=== PATIENT | female | born 1960 | race Caucasian/White ===

== ENCOUNTER 2022-04-02 13:26 | Outpatient (CLI) | payer BC, SELFPAY ==
--- NOTE | 2022-04-02 14:00 | CRLHL7_ITS ---
For Patients: As a result of the Century Cures Act, medical imaging exams and procedure reports are released immediately into your electronic medical record. You may view this report before your referring provider. If you have questions, please contact your health care provider. Indication: Low back pain, radiculopathy, left disc herniation Technique: Multiplanar, multisequence, MRI of the lumbar spine, obtained without contrast. Comparison: No relevant comparison studies available at this institution. Findings: S-shaped thoracolumbar spinal curvature. Preserved lordosis. Minimal grade 1 anterolisthesis at L4-5. No acute osseus abnormality. No suspicious bony edema or focal marrow lesion. The conus medullaris terminates at approximately L2. No suspicious findings in the prevertebral and paraspinal soft tissues. Markedly distended urinary bladder with bilateral renal cysts. Included SI joints are unremarkable. T12-L1 L1-2, L2-3: No significant neural foramen or spinal canal stenosis. L3-L4: Disc bulge, facet arthropathy. Suggestion of asymmetric lobulated fullness of the extraforaminal left L3 nerve (series 7 and 8, image 23), measuring up to 1 cm. No significant foraminal or spinal canal stenosis. L4-L5: Minimal anterolisthesis, disc unroofing/bulge, facet arthropathy. No significant foraminal or spinal canal stenosis. L5-S1: Disc bulge, facet arthropathy. Moderate-severe left foraminal stenosis with impingement of the exiting left L5 nerve root. No central spinal canal stenosis. Impression: 1. S-shaped thoracolumbar curvature with minimal degenerative grade 1 anterolisthesis at L4-5. 2. At L3-4, there appears to be fullness of the extraforaminal exiting left L3 nerve measuring up to 1 cm, possibly representing peripheral nerve sheath tumor versus artifact. Consider contrast enhanced MRI lumbar spine for further characterization. 3. At L5-S1, disc bulge and facet arthropathy contribute to moderate-severe left foraminal stenosis with impingement of the exiting left L5 nerve root. Dictated by Maria Isabel Vasquez MD @ 04/03/2022 11:09:22 AM (Electronically Signed)
== END 2022-04-02 13:27 | disposition home or self-care (01) ==
LOC: MRI 13:27
PROVIDERS: PCP Family Medicine; Visit Provider Family Medicine
DX: M54.50 Low back pain, unspecified (principal); M51.27 Other intervertebral disc displacement, lumbosacral region; M54.16 Radiculopathy, lumbar region
CPT/HCPCS: 72148

== ENCOUNTER 2022-04-19 12:46 | Outpatient (CLI) | payer BC, SELFPAY ==
--- NOTE | 2022-04-19 13:00 | CRLHL7_ITS ---
For Patients: As a result of the Century Cures Act, medical imaging exams and procedure reports are released immediately into your electronic medical record. You may view this report before your referring provider. If you have questions, please contact your health care provider. INDICATION: Abnormal finding on noncontrast MRI. COMPARISON: 04/02/2022. TECHNIQUE: Sagittal pre and post gadolinium sequences of the lumbar spine with IV gadolinium. FINDINGS: Study is performed as post gadolinium followup to prior exam. Review of the previous MRI again notes a fullness of the extra foraminal exiting left L3 nerve root. Finding is indeterminate and peripheral nerve sheath tumor cannot be excluded. On the current exam, normal vertebral body alignment. No fractures. No vertebral body loss of height. No spondylolisthesis. At the level of L3-4, again noted is focal low T1 signal intensity rounded lesion along the left foraminal and extraforaminal zone with marginal enhancement (best appreciated on series 3, image 23; series 4, image 13). This lesion appears contiguous with the L3-4 disc (best appreciated series 2, image 13). Overall, finding likely represents a left foraminal extraforaminal disc protrusion measuring approximate 6 mm in short axis with marginal reactive enhancement. This protrusion impinges upon the exiting left L3 nerve root. No abnormal enhancement or enhancing lesions elsewhere. IMPRESSION: 1. Post-contrast follow-up to prior exam again demonstrates a focal low T1 signal intensity rounded lesion along the left foraminal and extraforaminal zones at the L3-4 interspace with marginal enhancement. Overall, finding likely represents a left foraminal and extraforaminal disc protrusion with marginal reactive enhancement. Associated impingement upon the exiting left L3 nerve root. 2. No abnormal enhancement or enhancing lesions elsewhere Dictated by Benson Velasco MD @ 04/19/2022 3:52:36 PM (Electronically Signed)
== END 2022-04-19 12:47 | disposition home or self-care (01) ==
LOC: MRI 12:46
PROVIDERS: PCP Family Medicine; Visit Provider Family Medicine
DX: R94.8 Abnormal results of function studies of other organs and systems (principal); M51.26 Other intervertebral disc displacement, lumbar region; M54.16 Radiculopathy, lumbar region
CPT/HCPCS: 72149; A9575

== ENCOUNTER 2022-05-07 08:04 | Outpatient (CLI) | payer BC, SELFPAY | END 2022-05-07 08:05 | disposition home or self-care (01) | LOC: INJ CL 08:05 | PROVIDERS: PCP Family Medicine; Visit Provider Family Medicine | DX: M54.16 Radiculopathy, lumbar region (principal); M51.26 Other intervertebral disc displacement, lumbar region | CPT/HCPCS: 64483; J1100; Q9966 ==

== ENCOUNTER 2022-09-05 10:00 | Outpatient (RCR) | payer BC, SELFPAY ==
--- NOTE | 2022-08-19 15:16 | PT.OPDNX ---
PT [facility] Daily Note PT [facility] Daily Note Start: 07/02/22 12:06 Freq: Status: Active Protocol: Document 08/19/22 08:33 ARR (Rec: 08/19/22 09:47 ARR [id number]) E-signed By Neida Marmolejo DPT PT [facility] Daily Progress Note Visit Information Note Type Daily Note,Recert/Progress Note Visit Number [id number] Insurance Information Insurance Name [employer] Insurance Information/Comments Eval 07/02 POC 07/02-08/19 x 14 visits Extension of POC 08/20 - end x 10 visits Medical Diagnosis M54.16 lumbar radiculopathy Treating Diagnosis M54.16 lumbar radiculopathy M79.605 pain in left leg M79.604 pain in right leg Referring MD Randy Pickering MD ([facility]) Subjective Subjective -Feels she is improving now. Occasional numbness in feet catching in back as well. Knee isn't as painful. Feeling not as numb. When having numbness in feet Home Exercise Home Exercise Comments Access Code: [email or web address] URL: [email or web address] Date: 07/02/2022 Prepared by: Neida Marmolejo Exercises Supine Lower Trunk Rotation - 2-3 x daily - 7 x weekly - 4-6 reps Nerve Flossing - 2-3 x daily - 7 x weekly - 8-10 reps Supine Pelvic Tilt - 2-3 x daily - 7 x weekly - 4-6 reps Supine Double Knee to Chest - 2-3 x daily - 7 x weekly - 2-3 reps - 10-30 sec hold Seated Pelvic Tilt - 4-5 x daily - 7 x weekly - 4-5 reps Objective Other/Pertinent Objective 3: -Eleviated IC by 2-3 thumbwidths -Supine R MM and ASIS lower on R Eval 07/02 Posture: IC higher R by 2 thumbwidths, dec'd LS lordosis . Lateral shift to the L ( named by sh) Supine: R MM and ASIS lower on R SLS (30 sec): 20 sec bilat before LOB. Level IC on R LE. L LE inc'd instability and lateral trunk lean RANGE OF MOTION: Lumbar ROM: -Flx: finger tips to shins with inc'd L knee flexion. No changes in pain. WNL -Ext: 50% reduced segmental mobility into LS, reduced foot numbness no changes L knee pain -R Rot: 25% limitation no changes in pain -L Rot: 25% limitation no changes in pain -R Sidebend: 2 inches from lateral jt line no changes in pain -L Sidebend: 1 inches from lateral jt line no changes in pain LE ROM (R/L): -Hip ER90: 70 R / 60 L -Hip IR90: 40 R/L -Hip flex: 120 bilat -Hip Abd supine: WNL STRENGTH: LE Strength (R/L) -Hip flex: R: 4/5, L: 3+/5 -Knee flex: R: 4/5, L: 4-/5 -Knee ext: R: 4-/5, L: 3/5 -Ankle DF: R: 4+/5, L: 4+/5 -Hip abd: R: 3/5, L: 3+/5 LE Dermatome: -L2: Sensation Intact/Strength Tests WEAK (hip flexion) -L3: Sensation Intact/Strength Tests WEAK (quad / adductors) -L4: Sensation Intact/Strength Tests Strong (ant tib) -L5: Sensation Intact/Strength Tests Strong (EHL / peroneals / glut med) -S1: Sensation Intact/Strength Tests Strong (gastroc / HS) -S2: Sensation Intact/Strength Tests Strong (glut max) SPECIAL TESTS: Reflexes (R/L) -Patella: 2+ bilat -Achilles: 2+ bilat Other: -Seated slump: pos on L for reduced knee tingling on L with knee ext on L -passive SLR + on L for resolved L numbness -Correction of L lateral shift with passive sideglide of hips to the L inc'd L foot and knee symptoms LE Flexibility (R/L) -Hamstring: neg bilat -Piriformis: + L Functional Test Performed & Score SULEIMAN at eval 07/02 score of 25/ 50 Patient Instructed in Risks/Benefits Yes Therapeutic Exercise Therapeutic Exercise Minutes (minutes) 10 Therapeutic Exercise: To Restore TE: Indicated for improvement Functional Status in strengthening and mobility. -Discussion of centralization/ peripheralization of sx's. Continuing HEP with prone press up and back extension to continue to assess impact on most distal sxs. -Progression of strengthening exercises to regain strength -POC and continued PT with benefit of home traction unit Neuromuscular Re-Ed Neuromuscular Reeducation Minutes ( 20 minutes) Neuromuscular Reeducation Comments NMR: Indicated to facilitate improved muscle firing and postural awareness through the use of tactile cues. -SLR x 15 reps L LE, x 10 reps R LE -LAQ 2 x 20 reps L LE, 2 x 15 reps R LE 2# -Quadruped alt UE x 4 reps -QUadruped alt LE x 5 reps, With toe down x 4 reps -Wall slide 2 x 8 reps - NT in feet but resolved when cued for neutral spine - pt tends to deviate and load R side of body more with inc'd lateral shift Mechanical Traction Mechanical Traction Comments Patient received mechanical lumbar traction for 15 minutes . Did use intermittent setting at 60? maximum pull and 20? minimum hold duty cycle with intensity being 38 lbs max and 28 lbs minimum (last session ). No adverse reaction identified. Patient was positioned supine with hips flexed on leg stool; tolerated treatment well. Remaining time spend on joint and skin assessment. Total BW 110# per pt report Total treatment time 20 min for set-up Treatment Minutes Untimed Code Treatment Minutes 20 Timed Code Treatment Minutes 30 Total Treatment Time 50 Billing Units Neuromuscular Reeducation Units 1 Therapeutic Exercise Units 1 Mechanical Traction Units 1 Assessment/Impression Assessment/Impression Continued focus on proximal strengthening and some standing. Onset of foot NT in standing but resolved when cued for proper spinal alignment. Continued with LS traction with transition to more of a static load. Pt to continue HEP with focus on extension based exercises Skilled therapy continues to be indicated for progression of mobility/ROM, strength, and pain reduction. Due to the extensive level of muscle weakness may benefit from therapy beyond plan of care dates for full therapeutic improvement. Pt had been seen for lumbar radiculopathy for 14 visits from 07/02/2022 to 08/19/2022 during this episode of physical therapy. Focus of therapy on spinal ROM/ stretching, extension based exercises, core/glut strengthening, and myotome strengthening. Interventions including therapeutic exercise , manual therapy, neuromuscular re-education, lumbar traction. 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 Pt to benefit from extension of current plan of care with goals unchanged but timeframe extended. Pt continues to have leg symptoms but does significantly improve with use of traction and would benefit from home unit for middle or intermediate school principal mgmt of sx' s. Pt also continues to have myotome weakness and proxime core/glut inhibition. Skilled therapy is indicated to continue 1x/wk for an additional 10 visits until maximal therapeutic benefit has been achieved. Plan of Care Physical Therapy Goals STG (within 17 weeks) 1) Pt will initiate HEP without increased pain/ symptoms 2) Pt will report pain not to extend past L knee to demonstrate reduced neural sensitivity to improve ease of ADLs 3) Pt will demonstrate neutral pelvis without lateral shift 4) Pt will complete 6 MWT without device and no symptoms past low back for improved community mobility LTG (within 24 weeks) 1) Pt will be indep with HEP for middle or intermediate school principal management of pain/symptoms 2) Pt will report pain not to extend past L sided low back to demonstrate reduced neural sensitivity to improve ease of ADLs 3) Pt will demonstrate L LE strength to be within 1 MMT grade of opposite side to show resolved myotomal loss 4) Pt will report at least 70% improvement in pain/symptoms since start of PT for return to PLOF 5) Pt will report SULEIMAN score < 16/50 to show improved functional mobility for return to PLOF Daily Plan of Care Continue per POC Daily Plan of Care Comments -Extension based exercises effectiveness Progression core/glut strengthening for HEP- wall slides other exercises Assess for continued PT visits after current scheduled
== END 2022-12-09 12:39 | disposition home or self-care (01) ==
PROVIDERS: PCP Family Medicine; Visit Provider Family Medicine
DX: M51.26 Other intervertebral disc displacement, lumbar region (principal); Z51.89 Encounter for other specified aftercare
CPT/HCPCS: 97012; 97110; 97112; 97140; 97161; 97535

== ENCOUNTER 2023-04-03 10:42 | Outpatient (CLI) | payer MEDICARE, SELFPAY | END 2023-04-03 10:43 | disposition home or self-care (01) | PROVIDERS: PCP Family Medicine; Visit Provider Nurse Practitioner Family | DX: R19.7 Diarrhea, unspecified (principal); L65.9 Nonscarring hair loss, unspecified | CPT/HCPCS: 80048; 84443 ==

== ENCOUNTER 2023-04-04 06:30 | Outpatient (CLI) | payer MEDICARE, SELFPAY | END 2023-04-04 06:31 | disposition home or self-care (01) | LOC: NFLDREF 04-09 05:32 | PROVIDERS: PCP Family Medicine; Referring Provider Family Medicine; Visit Provider Nurse Practitioner Family | DX: R19.7 Diarrhea, unspecified (principal) | CPT/HCPCS: 87177; 87209 ==

== ENCOUNTER 2023-04-07 04:15 | Outpatient (CLI) | payer MEDICARE, SELFPAY | END 2023-04-07 04:16 | disposition home or self-care (01) | LOC: NFLDREF 04-09 06:40 | PROVIDERS: PCP Family Medicine; Referring Provider Family Medicine; Visit Provider Nurse Practitioner Family | DX: R19.7 Diarrhea, unspecified (principal) | CPT/HCPCS: 87045; 87046; 87427; 87493 ==

== ENCOUNTER 2024-03-25 15:36 | Outpatient (CLI) | payer MEDICARE, SELFPAY ==
[2024-03-25 22:50] LABS: SARS PCR* Negative SARS-CoV-2 (Negative)
== END 2024-03-25 15:37 | disposition home or self-care (01) ==
LOC: KYNREF 15:36
PROVIDERS: PCP Family Medicine; Visit Provider Nurse Practitioner Family
DX: J06.9 Acute upper respiratory infection, unspecified (principal)
CPT/HCPCS: 87635